=== PATIENT | female | born 1980 | race Caucasian/White ===

== ENCOUNTER → 2017-05-24 | Outpatient (CLI) | payer BC ==
[~2017-05-24] MED LIST: AMIT10TA PO; DETR2CAP PO; LISI10TA2 PO; NORCOTAB PO; ONDA4TAB6 PO; ROPI2TAB PO; SPIR100T PO; TOPI25TA10 PO; ZOFR4TAB3 PO
--- NOTE | 2017-05-25 05:07 | REP ---
Clinical: Pelvic pain and amenorrhea . Technique: Transabdominal pelvic ultrasound followed by transvaginal examination for better evaluation of the endometrium and adnexa. Findings: Bladder is unremarkable and measures 7.9 x 8.5 x 5.2 cm . Normal anteverted uterus measures 6.3 x 2.5 x 3.7 cm with few subcentimeter Nabothian cysts . The endometrial complex measures 6.8 mm thickness. No discrete uterine or endometrial abnormalities are appreciated. Bilateral ovaries are normal in appearance. Right ovary measures 3.5 x 2.6 x 2.8 cm. Left ovary measures 3.2 x 2.7 x 3.0 cm. No pelvic fluid or adnexal mass lesion. . Impression: 1. Normal pelvic ultrasound Signed by Bjorn Stevenson MD 05/25/2017 04:57 A
== END ==
LOC: M WHC 12:54
PROVIDERS: ATTEND Nurse Practitioner Women's Health
DX: N91.2 Amenorrhea, unspecified (principal)

== ENCOUNTER → 2017-05-24 | Outpatient (REF) | payer BC ==
[2017-05-24 18:10] LABS: FOLLICLE STIMULATING HORMONE 6.9 mIU/mL; LUTEINIZING HORMONE 11.1 mIU/mL
== END ==
LOC: M SFHCWAGY 13:46
PROVIDERS: ATTEND Nurse Practitioner Women's Health
DX: Z12.4 Encounter for screening for malignant neoplasm of cervix (principal); R23.2 Flushing; E28.2 Polycystic ovarian syndrome
CPT/HCPCS: 83001; 83002; G0123